=== PATIENT | female | born 1950 | race Caucasian/White ===

== ENCOUNTER 2021-03-04 17:00 | Emergency (ER) | payer MEDICARE, OTHER, SELFPAY ==
[2021-03-04 17:12] VITALS: BP 154/79; PULSE 95; RESP 16; TEMP 36.6; O2SAT 100
--- NOTE | 2021-03-04 17:54 | ED.URI ---
HPI - URI/Sore Throat General Chief Complaint: Upper Respiratory Infection Stated Complaint: sore throat headache cough Time Seen by Provider: 03/04/21 17:50 Source: patient, family and RN notes reviewed Mode of arrival: ambulatory Limitations: no limitations History of Present Illness HPI Narrative: Cyndee is a 70-year-old female patient who ambulated into the [facility] with complaints of sinus congestion. Patient states it is going on since before February 13. Patient had a negative Covid test on 02/13/2021. Patient takes Zyrtec Singulair and Flonase daily for severe allergies. Patient states she has severe sinus congestion, headache, and postnasal drainage. MD elicited complaint: nasal congestion Related Data Home Medications Medication Instructions Recorded Confirmed biotin 1 mg PO DAILY 03/04/21 03/04/21 calcium carbonate-vitamin D2 tablet PO 03/04/21 [Calcium + Vitamin D] cetirizine [Zyrtec] 10 mg PO DAILY 03/04/21 03/04/21 famotidine 03/04/21 fluticasone propionate INTRANASAL 03/04/21 meclizine 12.5 mg PO BID 03/04/21 03/04/21 montelukast mg 03/04/21 multivit with min-folic acid tablet PO 03/04/21 [Adult Multivitamin Gummies] omeprazole 03/04/21 Allergies Allergy/AdvReac Type Severity Reaction Status Date / Time amoxicillin Allergy Unknown Unknown Verified 03/04/21 17:30 clavulanic acid Allergy Unknown Unknown Verified 03/04/21 17:30 ibuprofen Allergy Unknown Unknown Unverified 03/04/21 17:30 Sulfa (Sulfonamide Allergy Unknown Unknown Unverified 03/04/21 17:30 Antibiotics) Review of Systems Review of Systems: CONSTITUTIONAL: Denies body aches, fever, chills, or sweats. EYES: Denies visual changes, redness, or discharge. ENT: Denies rhinorrhea,+ congestion, +sore throat, or otalgia. CARDIOVASCULAR: Denies chest pain, palpitations, or edema. RESPIRATORY: Denies cough or dyspnea. GASTROINTESTINAL: Denies abdominal pain, nausea, vomiting, or diarrhea. GENITOURINARY: Denies dysuria or hematuria. SKIN: Denies rash, itching, or wounds. MUSCULOSKELETAL: Denies back pain, joint pain, or myalgia. NEUROLOGIC: Denies headache, numbness, tingling, or weakness. PSYCH: Denies depression or anxiety. All systems reviewed & are unremarkable except as noted in HPI and below PMFSH Comments At time of signature, I have reviewed and agree with nursing past medical, surgical, social and family history unless otherwise noted. Please see nursing chart for further information. There is no relevant family history pertinent to the presenting complaint Exam Narrative: GENERAL: Well-appearing, well-nourished, and in no acute distress. HEAD: Normocephalic, atraumatic. EYES: EOMI. No redness or drainage. Conjunctivae normal. ENT: Mucous membranes pink and moist. Nasal membranes pale,. TMs opaque and bulging bilaterally; no erythema. Posterior pharynx erythemic with mild edema, no exudate, moderate post nasal drainage. Uvula midline. NECK: Normal AROM. Supple. No lymphadenopathy. CHEST: No respiratory distress. Clear to auscultation. MUSCULOSKELETAL: No bony tenderness. EXTREMITIES: Normal range of motion. No edema. SKIN: Warm, dry, no rash. Capillary refill normal. Normal skin turgor. NEURO: No focal deficits. Alert and oriented x3. Gait steady. PSYCH: Normal affect. No signs of depression or anxiety. Course Vital Signs Vital signs: Vital Signs Temperature 36.6 C 03/04/21 17:12 Pulse Rate 95 03/04/21 17:12 Respiratory Rate 16 03/04/21 17:12 Blood Pressure 154/79 H 03/04/21 17:12 Pulse Oximetry 100 03/04/21 17:12 Temperature 36.6 C 03/04/21 17:12 Pulse Rate 95 03/04/21 17:12 Respiratory Rate 16 03/04/21 17:12 Blood Pressure 154/79 H 03/04/21 17:12 Pulse Oximetry 100 03/04/21 17:12 Reviewed. Pt has been instructed to follow up with her PCP regarding her elevated blood pressure today. MDM - URI/Sore Throat MDM Narrative Medical decision making narrativ
== END 2021-03-04 18:06 | disposition home or self-care (01) ==
PROVIDERS: Emergency Provider Nurse Practitioner Family; PCP Nurse Practitioner Family
DX: J01.10 Acute frontal sinusitis, unspecified (principal); Z20.822 Contact with and (suspected) exposure to COVID-19
CPT/HCPCS: 87081; 87426; 87880; 99213; C9803; G0463

== ENCOUNTER 2022-01-16 09:42 | Outpatient (CLI) | payer MEDICARE, OTHER, SELFPAY | END 2022-01-16 09:43 | disposition home or self-care (01) | LOC: ANHBWCAUD 09:53 | PROVIDERS: PCP Nurse Practitioner Family; Visit Provider Otolaryngology | DX: H90.3 Sensorineural hearing loss, bilateral (principal) | CPT/HCPCS: 92557; 92567 ==

== ENCOUNTER 2022-04-23 10:55 | Emergency (ER) | payer MEDICARE, OTHER, SELFPAY ==
--- NOTE | 2022-04-23 10:59 | ED.URI ---
HPI - URI/Sore Throat General Chief Complaint: Upper Respiratory Infection Stated Complaint: Sore Throat/Cough Time Seen by Provider: 04/23/22 10:59 Source: patient and RN notes reviewed History of Present Illness HPI Narrative: patient is a 71-year-old female who presents to the Urgent Care with complaints of a sore throat, cough, sinus congestion. Patient states it started last Wednesday. Denies any fevers, shortness of breath, chest pain. No other acute complaints. Patient has been using Mucinex, Robitussin and Zyrtec. No acute distress noted. Patient aware of the plan of care. Some parts of this dictation were generated by voice recognition software and may contain typographical and/or grammatical inaccuracies. Related Data Home Medications Medication Instructions Recorded Confirmed biotin 1 mg capsule 1 mg PO DAILY 03/04/21 04/23/22 cetirizine 10 mg capsule (Zyrtec) 10 mg PO DAILY 03/04/21 04/23/22 famotidine 20 mg tablet 20 mg PO BID 03/04/21 04/23/22 montelukast 10 mg tablet 10 mg PO DAILY 03/04/21 04/23/22 fluticasone propionate 50 See Rx Instructions .Route .COMPLEX 04/23/22 04/23/22 mcg/actuation nasal spray,suspension hydrochlorothiazide 25 mg tablet 25 mg PO DAILY 04/23/22 04/23/22 omeprazole 20 mg capsule,delayed 20 mg PO DAILY 04/23/22 04/23/22 release Allergies Allergy/AdvReac Type Severity Reaction Status Date / Time amoxicillin Allergy Unknown Unknown Verified 04/23/22 11:02 clavulanic acid Allergy Unknown Unknown Verified 04/23/22 11:02 ibuprofen Allergy Unknown Unknown Unverified 04/23/22 11:02 Sulfa (Sulfonamide Allergy Unknown Unknown Unverified 04/23/22 11:02 Antibiotics) Review of Systems Review of Systems: CONSTITUTIONAL: Denies fever, chills, or sweats. EYES: Denies visual changes, redness, or discharge. ENT: Reports a sore throat and sinus congestion /pressure CARDIOVASCULAR: Denies chest pain, palpitations, or edema. RESPIRATORY: reports of cough without dyspnea GASTROINTESTINAL: Denies abdominal pain, nausea, vomiting, or diarrhea. GENITOURINARY: Denies dysuria or hematuria. SKIN: Denies rash or itching. MUSCULOSKELETAL: Denies back pain, joint pain, or myalgia. NEUROLOGIC: Denies headache, numbness, or weakness. All other systems reviewed are negative, except as documented in HPI. PMFSH Comments At the time of my signature, I reviewed and agree with the nursing past medical, surgical, social, and family history. There is no relevant family history pertinent to the patient complaint. Exam Narrative: GENERAL: This is a well-nourished, well-developed patient, in no apparent distress. HEAD: normocephalic, atraumatic. EYES: PERRL. Sclera clear/white. Vision is grossly intact. EARS: External ears normal, auditory canals clear and without drainage, TMs normal without perforation. Hearing grossly intact. NOSE: External nose normal with no obvious nasal discharge, nares without redness, clear rhinorrhea. THROAT: Mucous membranes moist, posterior pharynx clear. moderate postnasal drainage NECK: Neck supple CARDIOVASCULAR: Regular rate and rhythm without murmurs, gallops, or rubs. RESPIRATORY: Clear to auscultation. Breath sounds equal bilaterally. No wheezes, rales, or rhonchi. SKIN: warm, intact with no suspicious lesions or rash, good texture and turgor. NEURO: awake, alert, and oriented to person, place and time. There were no obvious focal neurologic abnormalities. EXTREMITIES: No clubbing, cyanosis, or edema. Course Course Level of Care: Express Care Visit Vital Signs Vital signs: Vital Signs Temperature 98.1 F 04/23/22 11:07 Pulse Rate 77 04/23/22 11:07 Respiratory Rate 18 04/23/22 11:07 Blood Pressure 151/77 H 04/23/22 11:07 Pulse Oximetry 100 04/23/22 11:07 Temperature 98.1 F 04/23/22 11:22 Pulse Rate 77 04/23/22 11:22 Respiratory Rate 18 04/23/22 11:22 Blood Pressure 151/77 H 04/23/22 11:22 Pulse Oximetry 100
[2022-04-23 11:07] VITALS: BP 151/77; PULSE 77; RESP 18; TEMP 36.7; O2SAT 100
[2022-04-23 11:22] VITALS: BP 151/77; PULSE 77; RESP 18; TEMP 36.7; O2SAT 100
== END 2022-04-23 11:45 | disposition home or self-care (01) ==
PROVIDERS: Emergency Provider Nurse Practitioner Family; PCP Nurse Practitioner Family
DX: J06.9 Acute upper respiratory infection, unspecified (principal)
CPT/HCPCS: 87081; 87880; 99213; G0463

== ENCOUNTER 2023-04-24 08:04 | Emergency (ER) | payer MEDICARE, OTHER, SELFPAY ==
[2023-04-24 08:10] VITALS: BP 141/73; PULSE 94; RESP 16; TEMP 36.3; O2SAT 100
--- NOTE | 2023-04-24 08:16 | ED.GENADULT ---
HPI - General Adult General Chief complaint: Urogenital-Female Stated complaint: Urinary Problem Source: patient, RN notes reviewed and old records reviewed Mode of arrival: ambulatory Limitations: no limitations History of Present Illness HPI narrative: 72-year-old female presents to [facility] with complaint of lower back pain for a few months. Patient states that about a week ago started having urinary frequency, burning with urination, suprapubic pain, and vaginal pressure. Patient denies fever, nausea vomiting. MD complaint: Urinary frequency Onset (ago): week(s) (1) Related Data Home Medications Medication Instructions Recorded Confirmed biotin 1 mg capsule 1 mg PO DAILY 03/04/21 04/23/22 cetirizine 10 mg capsule (Zyrtec) 10 mg PO DAILY 03/04/21 04/23/22 famotidine 20 mg tablet 20 mg PO BID 03/04/21 04/23/22 montelukast 10 mg tablet 10 mg PO DAILY 03/04/21 04/23/22 fluticasone propionate 50 See Rx Instructions .Route .COMPLEX 04/23/22 04/23/22 mcg/actuation nasal spray,suspension hydrochlorothiazide 25 mg tablet 25 mg PO DAILY 04/23/22 04/23/22 omeprazole 20 mg capsule,delayed 20 mg PO DAILY 04/23/22 04/23/22 release Allergies Allergy/AdvReac Type Severity Reaction Status Date / Time amoxicillin Allergy Unknown Unknown Verified 04/23/22 11:02 clavulanic acid Allergy Unknown Unknown Verified 04/23/22 11:02 ibuprofen Allergy Unknown Unknown Unverified 04/23/22 11:02 Sulfa (Sulfonamide Allergy Unknown Unknown Unverified 04/23/22 11:02 Antibiotics) Review of Systems Constitutional: Constitutional: Reports no additional constitutional complaints, Denies body ache(s), Denies chills, Denies fatigue, Denies fever(s) and Denies headache(s) Eyes: Eyes: Reports no additional eye complaints and Denies blurry vision ENT: Reports system reviewed and no additional complaints, except as documented, Denies vertigo, Denies dizziness, Denies ear discharge, Denies otalgia, Denies facial pain, Denies headache(s), Denies nasal congestion, Denies nasal discharge, Denies sinus pain, Denies sinus pressure and Denies sore throat Cardiovascular: Cardiovascular: Reports no additional cardiovascular complaints, Denies chest pain, Denies chest pain at rest, Denies rapid heart rate and Denies dyspnea Respiratory: Respiratory: Reports no additional respiratory complaints, Denies chest congestion, Denies cough, Denies pain on inspiration, Denies pain with cough and Denies dyspnea Gastrointestinal: Gastrointestinal: Reports abdominal pain, Denies diarrhea, Denies nausea and Denies vomiting Genitourinary: Genitourinary: Reports as per HPI, Reports nocturia, Reports dysuria, Reports pelvic pain, Denies urinary incontinence, Denies urinary hesitancy and Denies urinary urgency Integumentary/Breasts: Skin/Breast: Denies rash Neurologic: Reports system reviewed and no additional complaints, except as documented, Denies vertigo, Denies dizziness and Denies headache(s) Endocrine: Endocrine: Denies fatigue PMFSH Comments At the time of my signature, I reviewed and agree with the nursing past medical, surgical, social, and family history. There is no relevant family history pertinent to the patient complaint. Exam Const: General: cooperative, healthy appearing, no acute distress and well nourished Nutritional Appearance: well nourished Orientation/consciousness: patient oriented x3 Limitations: no limitations HENMT: Head: normal to inspection and normocephalic Ears: external ears normal, TM's normal bilaterally, mastoids normal and Abnormal EAC present Face/Nose/Sinus: normal facial exam Face and sinus: normal facial exam Mouth: Yes Normal oral and palatal mucosa present, Yes oropharynx normal and Yes moist mucous membranes Throat: tonsils normal, uvula midline and no uvular edema Eyes: General: appearance normal, both eyes and all related structures Sclera: sclerae normal Pupils: Equal, round and reactive pupils present Resp
== END 2023-04-24 08:48 | disposition home or self-care (01) ==
PROVIDERS: Emergency Provider Registered Nurse; PCP Nurse Practitioner Family
DX: N30.90 Cystitis, unspecified without hematuria (principal)
CPT/HCPCS: 81003; 87086; 99213; G0463

== ENCOUNTER 2023-10-06 13:10 | Emergency (ER) | payer MEDICARE, OTHER, SELFPAY ==
--- NOTE | ~2023-10-06 | XR_ITS ---
XR tibia fibula LT 2V 10/06/2023 14:05 INDICATION: Left leg pain PROCEDURE: 2 views left tibia/fibula COMPARISON: No prior studies for comparison. FINDINGS: Fracture, dislocation or subluxation is not identified. The soft tissues appear within norm al limits. No foreign bodies are identified. IMPRESSION: 1: NO ACUTE BONE OR JOINT ABNORMALITY IDENTIFIED. Reviewed, dictated and finalized at location B.
[2023-10-06 13:20] VITALS: BP 141/77; PULSE 87; RESP 18; TEMP 37.1; O2SAT 99
--- NOTE | 2023-10-06 14:46 | ED.LOWEXIN ---
HPI - Extremity Injury (Lower) General Chief Complaint: Extremity Injury, Lower Stated Complaint: Fall Injury/Left Leg Injury Source: patient Mode of arrival: ambulatory Limitations: no limitations History of Present Illness HPI Narrative: 9-year-old female presented complaint left low lower leg pain after injury this morning. She states she slipped off of her step stool while reaching overhead clean. Endorses catching herself on the door so she did not fall to the ground but landed on the left foot. Endorses pain is to the mid lower leg extending to the foot, Pain increases with range of motion of the ankle. Denies numbness, tingling, weakness, swelling, bruising or deformity. has not taken anything for pain. Related Data Home Medications Medication Instructions Recorded Confirmed biotin 1 mg capsule 1 mg PO DAILY 03/04/21 04/23/22 cetirizine 10 mg capsule (Zyrtec) 10 mg PO DAILY 03/04/21 04/23/22 famotidine 20 mg tablet 20 mg PO BID 03/04/21 04/23/22 montelukast 10 mg tablet 10 mg PO DAILY 03/04/21 04/23/22 fluticasone propionate 50 See Rx Instructions .Route .COMPLEX 04/23/22 04/23/22 mcg/actuation nasal spray,suspension hydrochlorothiazide 25 mg tablet 25 mg PO DAILY 04/23/22 04/23/22 omeprazole 20 mg capsule,delayed 20 mg PO DAILY 04/23/22 04/23/22 release Allergies Allergy/AdvReac Type Severity Reaction Status Date / Time amoxicillin Allergy Unknown Unknown Verified 04/23/22 11:02 clavulanic acid Allergy Unknown Unknown Verified 04/23/22 11:02 ibuprofen Allergy Unknown Unknown Unverified 04/23/22 11:02 Sulfa (Sulfonamide Allergy Unknown Unknown Unverified 04/23/22 11:02 Antibiotics) Review of Systems Review of Systems: CONSTITUTIONAL: Denies body aches, fever, chills CARDIOVASCULAR: Denies chest pain, palpitations, or edema. RESPIRATORY: Denies cough or dyspnea. GASTROINTESTINAL: Denies abdominal pain, nausea, vomiting, or diarrhea. SKIN: Denies rash, itching, or wounds. MUSCULOSKELETAL: Reports left leg pain Denies back pain, joint pain, or myalgia. NEUROLOGIC: Denies headache, numbness, tingling, or weakness. All systems reviewed & are unremarkable except as noted in HPI and below PMFSH Comments At time of signature, I have reviewed and agree with nursing past medical, surgical, social and family history unless otherwise noted. Please see nursing chart for further information. There is no relevant family history pertinent to the presenting complaint Exam Narrative: GENERAL: Well-appearing CHEST: Speaks in full sentences. No respiratory distress. HEART: Regular rate and rhythm. Normal and equal peripheral pulses. EXTREMITIES: Left leg has normal strength and sensation, normal range of motion at hip, knee and ankle, but endorses pain to mid lower leg with movement. Trace swelling to medial ankle. Anterior lower leg with yellow bruising. No point tenderness to lower leg. negative Claudine sign. No open wounds, or obvious deformity; alignment normal, pulse palpable and equal bilaterally, skin warm, dry, pink. Capillary refill less than 3 seconds. SKIN: Warm, dry, no rash. NEURO: Alert and oriented x3. PSYCH: Normal mood and affect Course Course Emergency Course: Patient is aware of diagnosis, understands and agrees to treatment plan. Anticipatory guidance given. Patient agrees to follow-up as directed and is aware of reasons to seek care at the emergency department. Portions of this record may have been created with voice recognition software Level of Care: Express Care Visit Vital Signs Vital signs: Vital Signs Temperature 98.7 F 10/06/23 13:20 Pulse Rate 87 10/06/23 13:20 Respiratory Rate 18 10/06/23 13:20 Blood Pressure 141/77 H 10/06/23 13:20 Pulse Oximetry 99 10/06/23 13:20 Oxygen Delivery Room Air 10/06/23 13:20 Temperature 98.7 F 10/06/23 13:20 Pulse Rate 87 10/06/23 13:20 Respiratory Rate 18 10/06/23 13:20 Blood Pressure
== END 2023-10-06 15:08 | disposition home or self-care (01) ==
PROVIDERS: Emergency Provider Nurse Practitioner Family; PCP Nurse Practitioner Family
DX: M79.662 Pain in left lower leg (principal); K21.9 Gastro-esophageal reflux disease without esophagitis; F03.90 Unspecified dementia, unspecified severity, without behavioral disturbance, psychotic disturbance, mood disturbance, and anxiety
CPT/HCPCS: 73590; 99213; G0463